=== PATIENT | male | born 1975 | race Caucasian/White ===

== ENCOUNTER 2022-09-19 22:58 | Emergency (ER) | payer SELFPAY ==
--- NOTE | 2022-09-19 23:10 | NUR ---
PT LEFT WITHOUT BEING SEEN IN THE TRIAGE.
== END 2022-09-19 23:10 | disposition left against medical advice (07) ==
LOC: MED 22:58
DX: R45.851 Suicidal ideations (principal); Z53.21 Procedure and treatment not carried out due to patient leaving prior to being seen by health care provider